=== PATIENT | male | born 1975 ===

== ENCOUNTER → 2017-02-27 | Outpatient (CLI) | payer BC ==
[~2017-02-27] MED LIST: CETITAB27 PO; GADAVIST IV PRN; ZFRODT4 SL
--- NOTE | 2017-02-27 07:57 | DIAGNOSTIC IMAGING REPORT ---
Brain MRI WITH AND WITHOUT CONTRAST HISTORY: Headache TECHNIQUE: Multiplanar multisequence MRI of the brain was performed both before and after the intravenous administration of contrast. COMPARISON STUDY: Brain MRI 09/03/2014. FINDINGS: There are no areas of restricted diffusion to suggest acute infarction. The midline structures are intact. A few small retention cysts within the maxillary sinuses. The mastoid air cells are clear. The ventricles and sulci are within normal limits for age. There is no mass, hematoma, midline shift. The major vascular flow-voids at the skull base are well maintained. Postcontrast sequences show no areas of abnormal enhancement. IMPRESSION: No acute intracranial abnormality. Electronically signed by: Aung Deras M.D. 02/27/2017 7:56 AM Dictated Date/Time: 02/27/2017 7:49 AM
== END | disposition home or self-care (01) ==
LOC: C.MRIBC 06:58
PROVIDERS: ATTEND Psychiatry & Neurology Neurology
DX: R51 Headache (principal)